=== PATIENT | male | born 1970 | race Caucasian/White ===

== ENCOUNTER 2017-06-23 10:43 | Observation (INO) | payer OTHER ==
[2017-06-23 10:53] VITALS: BP 120/69; PULSE 96; RESP 16; TEMP 98.7; O2SAT 97
--- NOTE | 2017-06-23 11:10 | PD ---
HPI Chief Complaint: Chest Pain Time Seen by Provider: 11:01 Travel History International Travel<30 days: No Contact w/Intl Traveler<30days: No Traveled to known affect area: No History of Present Illness HPI 47-year-old male who presents under police custody for evaluation of chest pain. Symptoms started after being arrested this morning. He describes it as a substernal chest pressure which initially was constant and lasted for several minutes and then resolved prior to this examination. He has never experienced this type of pain before. He denies any nausea, vomiting, diaphoresis, cough, congestion, abdominal pain. He denies any chest wall trauma. He endorses tobacco use as well as cocaine use, most recently used cocaine yesterday. He is not aware of any personal history of diabetes, hypertension, hyperlipidemia, coronary artery disease. He is not aware of any family history of coronary artery disease. He is a poor historian. No other complaints. [facility] Past Medical History Medical History: Denies Significant Hx Social History Alcohol Use: Yes (DAILY) Tobacco Use: Yes (1 PPD) Substance Use: Yes (cocaine) Allergies-Medications (Allergen,Severity, Reaction): Coded Allergies: No Known Allergies (Unverified , 06/23/17) Review of Systems Except as stated in HPI: all other systems reviewed are Neg Physical Exam Narrative GENERAL: Disheveled male in no acute distress resting hospital bed. SKIN: Warm and dry. HEAD: Atraumatic. Normocephalic. EYES: Pupils equal and round. No scleral icterus. No injection or drainage. ENT: No nasal bleeding or discharge. Mucous membranes pink and moist. NECK: Trachea midline. No JVD. CARDIOVASCULAR: Regular rate and rhythm. No murmur appreciated. RESPIRATORY: No accessory muscle use. Clear to auscultation. Breath sounds equal bilaterally. No crackles no wheezing or rhonchi GASTROINTESTINAL: Abdomen soft, non-tender, nondistended. Hepatic and splenic margins not palpable. MUSCULOSKELETAL: No obvious deformities. No edema. NEUROLOGICAL: Awake and alert. No obvious cranial nerve deficits. Motor grossly within normal limits. Normal speech. Data Data Last Documented VS Vital Signs Date Time Temp Pulse Resp B/P (MAP) Pulse Ox O2 Delivery O2 Flow Rate FiO2 06/23/17 11:18 96 Room Air 06/23/17 10:56 66 16 06/23/17 10:53 98.7 120/69 (86) Orders Orders Electrocardiogram (06/23/17 11:07) Basic Metabolic Panel (Bmp) (06/23/17 11:07) Ckmb (Isoenzyme) Profile (06/23/17 11:07) Complete Blood Count With Diff (06/23/17 11:07) Magnesium (Mg) (06/23/17 11:07) Prothrombin Time / Inr (Pt) (06/23/17 11:07) Act Partial Throm Time (Ptt) (06/23/17 11:07) Troponin I (06/23/17 11:07) Ecg Monitoring (06/23/17 11:07) Bilateral Bp Monitoring (06/23/17 11:07) Iv Access Insert/Monitor (06/23/17 11:07) Oximetry (06/23/17 11:07) Oxygen Administration (06/23/17 11:07) Sodium Chloride 0.9% Flush (Ns Flush) (06/23/17 11:15) Chest, Pa & Lat (06/23/17 11:07) Admit Order (Ed Use Only) (06/23/17 11:59) Labs Laboratory Tests Test 06/23/17 11:11 White Blood Count 8.6 TH/MM3 Red Blood Count 3.78 MIL/MM3 Hemoglobin 11.6 GM/DL Hematocrit 35.2 % Mean Corpuscular Volume 93.2 FL Mean Corpuscular Hemoglobin 30.6 PG Mean Corpuscular Hemoglobin Concent 32.8 % Red Cell Distribution Width 16.3 % Platelet Count 255 TH/MM3 Mean Platelet Volume 8.1 FL Neutrophils (%) (Auto) 70.6 % Lymphocytes (%) (Auto) 18.3 % Monocytes (%) (Auto) 9.0 % Eosinophils (%) (Auto) 1.5 % Basophils (%) (Auto) 0.6 % Neutrophils # (Auto) 6.1 TH/MM3 Lymphocytes # (Auto) 1.6 TH/MM3 Monocytes # (Auto) 0.8 TH/MM3 Eosinophils # (Auto) 0.1 TH/MM3 Basophils # (Auto) 0.1 TH/MM3 CBC Comment DIFF FINAL Differential Comment Prothrombin Time 9.8 SEC Prothromb Time International Ratio 1.0 RATIO Activated Partial Thromboplast Time 28.7 SEC Blood Urea Nitrogen 13 MG/DL Creatinine 1.00 MG/DL Random Glucose 96 MG/DL Calcium Level 8.8 MG/DL Magnesium Level 1.8 MG/DL Sodium Level 136 MEQ/L Potassium Level 3.8 MEQ/L Chloride Level 102 MEQ/L Carbon Dioxide Level 27.5 MEQ/L Anion Gap 7 MEQ/L Estimat Glomerular Filtration Rate 80 ML/MIN Total Creatine Kinase 87 U/L Troponin I LESS THAN 0.02 NG/ML MDM Medical Decision Making Medical Screen Exam Complete: Yes Emergency Medical Condition: Yes Medical Record Reviewed: Yes Differential Diagnosis Anxiety, spontaneous pneumothorax, pleurisy, pericarditis, myocarditis, angina, acute coronary syndrome, pulmonary embolism, aortic dissection Narrative Course The patient was placed on the seizure monitor and pulse oximetry. Twelve-lead EKG was obtained revealing Q waves in precordial leads with no acute ischemic changes. The patient received supplemental nitroglycerin and aspirin on route and he is currently chest pain-free. Lab work, chest x-ray is been ordered. Initial lab work is reassuring. This one time, given his age, history of cocaine abuse and tobacco abuse, the plan is to admit him in the chest pain center for serial cardiac enzymes and rule out purposes. He is agreeable. He remains chest pain-free during his examination in the ED. Diagnosis Primary Impression: Chest pain Additional Impressions: Cocaine abuse Tobacco abuse Admitting Information Admitting Physician Requests: Yunior Mayers Jun 23, 2017 11:10
[2017-06-23] MEDS ORDERED: SODIUM CHLORIDE 0.9% FLUSH 10 ML FLUSH IVF PRN (11:15)
[2017-06-23 11:18] VITALS: O2SAT 96
[2017-06-23 11:25] LABS: AUTOMATED NEUTROPHIL # 6.1 TH/MM3 (1.8-7.7); BASOPHIL # 0.1 TH/MM3 (0-0.2); BASOPHIL % 0.6 % (0.0-2.0); EOSINOPHIL # 0.1 TH/MM3 (0-0.4); EOSINOPHIL % 1.5 % (0.0-4.0); HEMATOCRIT 35.2 % (39.0-51.0); HEMOGLOBIN 11.6 GM/DL (13.0-17.0); LYMPH % 18.3 % (9.0-44.0); LYMPHOCYTE # 1.6 TH/MM3 (1.0-4.8); MEAN CELL VOLUME 93.2 FL (80.0-100.0); MEAN CORPUSCULAR HEMOGLOBIN 30.6 PG (27.0-34.0); MEAN CORPUSCULAR HGB CONC 32.8 % (32.0-36.0); MEAN PLATELET VOLUME 8.1 FL (7.0-11.0); MONOCYTE # 0.8 TH/MM3 (0-0.9); NEUT % 70.6 % (16.0-70.0); PLATELET COUNT 255 TH/MM3 (150-450); RED BLOOD COUNT 3.78 MIL/MM3 (4.50-5.90); RED CELL DISTRIBUTION WIDTH 16.3 % (11.6-17.2); WHITE BLOOD COUNT 8.6 TH/MM3 (4.0-11.0)
[2017-06-23 11:36] LABS: PROTHROMBIN TIME - PATIENT 9.8 SEC (9.8-11.6)
--- NOTE | 2017-06-23 11:38 | PD ---
Physical Exam Date Seen by Provider: Jun 23, 2017 Time Seen by Provider: 11:25 Narrative I am seeing this patient with Yunior Trejo PA-C. This is a 47-year-old male with no reported past medical history, who presents via EMS in custody after he had an episode of pain. Patient states that the pain has nearly resolved however it was present prior to arrival. He reports as a pressure-like over the sternum. The patient has no previous history of cardiac events but has not seen a physician in the past. The patient does use tobacco products and admits to using cocaine. Data Data Last Documented VS Vital Signs Date Time Temp Pulse Resp B/P (MAP) Pulse Ox O2 Delivery O2 Flow Rate FiO2 06/23/17 11:18 96 Room Air 06/23/17 10:56 66 16 06/23/17 10:53 98.7 120/69 (86) Orders Orders Electrocardiogram (06/23/17 11:07) Basic Metabolic Panel (Bmp) (06/23/17 11:07) Ckmb (Isoenzyme) Profile (06/23/17 11:07) Complete Blood Count With Diff (06/23/17 11:07) Magnesium (Mg) (06/23/17 11:07) Prothrombin Time / Inr (Pt) (06/23/17 11:07) Act Partial Throm Time (Ptt) (06/23/17 11:07) Troponin I (06/23/17 11:07) Ecg Monitoring (06/23/17 11:07) Bilateral Bp Monitoring (06/23/17 11:07) Iv Access Insert/Monitor (06/23/17 11:07) Oximetry (06/23/17 11:07) Oxygen Administration (06/23/17 11:07) Sodium Chloride 0.9% Flush (Ns Flush) (06/23/17 11:15) Chest, Pa & Lat (06/23/17 11:07) Labs Laboratory Tests Test 06/23/17 11:11 White Blood Count 8.6 TH/MM3 Red Blood Count 3.78 MIL/MM3 Hemoglobin 11.6 GM/DL Hematocrit 35.2 % Mean Corpuscular Volume 93.2 FL Mean Corpuscular Hemoglobin 30.6 PG Mean Corpuscular Hemoglobin Concent 32.8 % Red Cell Distribution Width 16.3 % Platelet Count 255 TH/MM3 Mean Platelet Volume 8.1 FL Neutrophils (%) (Auto) 70.6 % Lymphocytes (%) (Auto) 18.3 % Monocytes (%) (Auto) 9.0 % Eosinophils (%) (Auto) 1.5 % Basophils (%) (Auto) 0.6 % Neutrophils # (Auto) 6.1 TH/MM3 Lymphocytes # (Auto) 1.6 TH/MM3 Monocytes # (Auto) 0.8 TH/MM3 Eosinophils # (Auto) 0.1 TH/MM3 Basophils # (Auto) 0.1 TH/MM3 CBC Comment DIFF FINAL Differential Comment Prothrombin Time 9.8 SEC Prothromb Time International Ratio 1.0 RATIO Activated Partial Thromboplast Time 28.7 SEC Blood Urea Nitrogen 13 MG/DL Creatinine 1.00 MG/DL Random Glucose 96 MG/DL Calcium Level 8.8 MG/DL Magnesium Level 1.8 MG/DL Sodium Level 136 MEQ/L Potassium Level 3.8 MEQ/L Chloride Level 102 MEQ/L Carbon Dioxide Level 27.5 MEQ/L Anion Gap 7 MEQ/L Estimat Glomerular Filtration Rate 80 ML/MIN Total Creatine Kinase 87 U/L Troponin I LESS THAN 0.02 NG/ML [facility] Medical Record Reviewed: Yes Supervised Visit with NEIL: Yes Differential Diagnosis ACS versus muscular skeletal pain versus pleurisy v Narrative Course 47-year-old male with history of cocaine and tobacco use, presents here in custody. The patient apparently started expressing chest pain when he was arrested. EKG shows no evidence of acute ST elevation or depression. There is questionable Q waves noted in V1 and V2. Cardiac enzymes are within normal limits. Given the patient's cocaine and tobacco use, recommendation is that he go to the chest pain center for rule out protocol. He is amenable to this plan. Diagnosis Primary Impression: Chest pain Additional Impressions: History of cocaine use History of tobacco use Admitting Information Admitting Physician Requests: Observation Jorge Azevedo MD Jun 23, 2017 11:38
--- NOTE | 2017-06-23 11:48 | RADRPT ---
EXAM DATE/TIME: 06/23/2017 11:33 [facility] COMPARISON: No previous studies available for comparison. INDICATIONS : Chest pain today. MEDICAL HISTORY : None. SURGICAL HISTORY : None. ENCOUNTER: Initial ACUITY: 1 day PAIN SCORE: 6/10 LOCATION: Bilateral chest FINDINGS: PA and lateral views of the chest demonstrate a normal-sized cardiac silhouette. There is no effusion , consolidation, or pneumothorax. The bones and soft tissues demonstrate no acute abnormality. CONCLUSION: No acute cardiopulmonary abnormalities identified. Gio Root MD on June 23, 2017 at 11:44 Board Certified Radiologist. This report was verified electronically.
[2017-06-23 11:51] LABS: BICARBONATE 27.5 MEQ/L (21.0-32.0); BLOOD UREA NITROGEN 13 MG/DL (7-18); CALCIUM 8.8 MG/DL (8.5-10.1); CHLORIDE 102 MEQ/L (98-107); GLOMERULAR FILTRATION RATE 80 ML/MIN (>89); GLUCOSE,RANDOM 96 MG/DL (74-106); MAGNESIUM 1.8 MG/DL (1.5-2.5); SODIUM (NA) 136 MEQ/L (136-145)
[2017-06-23 11:54] LABS: TROPONIN I LESS THAN 0.02 NG/ML (0.02-0.05)
[2017-06-23] MEDS ORDERED: ACETAMINOPHEN 500 MG CPLT PO PRN (12:45)
[2017-06-23] MEDS ORDERED: SODIUM CHLORID 0.9% 500 ML INJ 500 ML IV ONE (12:45)
[2017-06-23] MEDS ORDERED: ACETAMINOPHEN/HYDROcodone 325 MG/7.5 MG TAB PO PRN (12:45)
[2017-06-23] MEDS ORDERED: PANTOPRAZOLE SOD 40 MG DELAYED RELEASE TAB PO SCH (12:45)
[2017-06-23] MEDS ORDERED: ONDANSETRON HCL 4 MG/2 ML VIAL IV PUSH PRN (12:45)
[2017-06-23] MEDS ORDERED: METH40TA PO (13:08)
[2017-06-23 13:11] VITALS: BP 139/82; PULSE 67; RESP 18; O2SAT 98
--- NOTE | 2017-06-23 13:45 | HHI.HP ---
HPI Primary Care Physician No Primary Care Physician Chief Complaint Chest pain History of Present Illness This is a 47-year-old male that presents to ED via [facility] in police custody with complaint of chest discomfort. He states that he developed the chest discomfort while sitting in the back of the police car. Describes it as an elephant sitting on his chest. Had some shortness of breath. Denies diaphoresis or nausea. States he was given sublingual nitroglycerin in the ambulance but it really did not make a difference. He states eventually resolved within about an hour. Worse level is a 10 out of 10. Cannot recall prior cardiac workup. Denies hypertension, hyperlipidemia, diabetes, and known CAD. States he goes to methadone clinic for daily methadone. Admits to using cocaine daily for the past 2 months. States he will smoke crack cocaine 6-7 times a day. Denies recent illness. Denies fevers or chills. Admits to being under a lot of stress. States he is in the process of buying a condo. Review of Systems General: Patient denies fevers, chills, and recent travel HEENT: Patient denies headache, sore throat, difficulty swallowing. Cardiovascular: Has the chest discomfort as mentioned above. Denies sensation of heart beating rapidly or irregularly. No syncope. Denies diaphoresis. Respiratory: He was short of breath. Denies inspirational chest discomfort. Denies coughing wheezing or hemoptysis. GI: Patient denies nausea, vomiting, diarrhea, abdominal pain, bloody stools. Musculoskeletal: Patient denies joint pain or edema. Denies calf pain or edema. Neurovascular: Patient denies numbness, tingling, weakness in extremities. Denies headache. Endocrine: Denies polyuria and polydipsia. Hematologic: Denies easy bruising. Skin: Denies rash or itching. States he has scabs on his arms from picking at the skin. States he does this as a nervous habit. Has not noticed any drainage or redness. Past Family Social History Allergies: Coded Allergies: No Known Allergies (Unverified , 06/23/17) Past Medical History Cocaine abuse. Tobacco abuse. Chronic pain. Denies hypertension, hyperlipidemia, diabetes, and CAD. Past Surgical History Noncontributory. Reported Medications Reported Meds & Active Scripts Active Reported Methadone (Methadone HCl) 40 Mg Tab 120 Mg PO DAILY Active Ordered Medications Current Medications Medications (Trade) Dose Ordered Sig/Matthew Route Start Time Stop Time Status Last Admin (NS Flush) 2 ml UNSCH PRN IVF 06/23/17 11:15 (Tylenol) 500 mg Q4H PRN PO 06/23/17 12:45 (Parnell 7.5-325 Mg) 1 tab Q4H PRN PO 06/23/17 12:45 (Zofran Inj) 4 mg Q6H PRN IV PUSH 06/23/17 12:45 (Protonix) 40 mg DAILY PO 06/23/17 12:45 06/23/17 13:12 (Aspirin) 325 mg DAILY PO 06/24/17 09:00 Family History States his mother at age 55 old myocardial infarction. Social History Months. Prior to that he states he was sober for a couple years. Has on average a couple beers per day. Physical Exam Vital Signs Vital Signs Date Time Temp Pulse Resp B/P (MAP) Pulse Ox O2 Delivery O2 Flow Rate FiO2 06/23/17 13:11 67 18 139/82 (101) 98 Room Air 06/23/17 11:18 96 Room Air 06/23/17 11:18 96 Room Air 06/23/17 10:56 66 16 92 Room Air 06/23/17 10:53 98.7 96 16 120/69 (86) 97 Physical Exam GENERAL: This is a well-nourished, well-developed patient, in no apparent distress. Patient speaks in clear complete sentences. Patient is pleasant. HEENT: Head is atraumatic and normocephalic. Neck is supple without lymphadenopathy and trachea is midline. No JVD or carotid bruits. CARDIOVASCULAR: Regular rate and rhythm without murmurs, gallops, or rubs. RESPIRATORY: Clear to auscultation. Breath sounds equal bilaterally. No wheezes , rales, or rhonchi. Chest wall is nontender. No use of accessory muscles. GASTROINTESTINAL: Abdomen is nontender, nondistended. Abdomen soft. No obvious pulsatile mass or bruit. No CVA tenderness. Strong femoral pulses bilaterally. Normal bowel sounds in all quadrants. MUSCULOSKELETAL: Patient is moving upper and lower extremities freely. No calf tenderness or edema, no Homans sign. Strong pulses in upper and lower extremities. NEUROLOGICAL: Patient is alert and oriented. Cranial nerves 2-12 are grossly intact. No focal deficits and speech is clear. SKIN: There are several scabbed lesions on his forearms without erythema or drainage. No rash and turgor is normal. Laboratory Laboratory Tests Test 06/23/17 11:11 White Blood Count 8.6 Red Blood Count 3.78 Hemoglobin 11.6 Hematocrit 35.2 Mean Corpuscular Volume 93.2 Mean Corpuscular Hemoglobin 30.6 Mean Corpuscular Hemoglobin Concent 32.8 Red Cell Distribution Width 16.3 Platelet Count 255 Mean Platelet Volume 8.1 Neutrophils (%) (Auto) 70.6 Lymphocytes (%) (Auto) 18.3 Monocytes (%) (Auto) 9.0 Eosinophils (%) (Auto) 1.5 Basophils (%) (Auto) 0.6 Neutrophils # (Auto) 6.1 Lymphocytes # (Auto) 1.6 Monocytes # (Auto) 0.8 Eosinophils # (Auto) 0.1 Basophils # (Auto) 0.1 CBC Comment DIFF FINAL Differential Comment Prothrombin Time 9.8 Prothromb Time International Ratio 1.0 Activated Partial Thromboplast Time 28.7 Blood Urea Nitrogen 13 Creatinine 1.00 Random Glucose 96 Calcium Level 8.8 Magnesium Level 1.8 Sodium Level 136 Potassium Level 3.8 Chloride Level 102 Carbon Dioxide Level 27.5 Anion Gap 7 Estimat Glomerular Filtration Rate 80 Total Creatine Kinase 87 Troponin I LESS THAN 0.02 Result Diagram: 06/23/17 1111 06/23/17 1111 Imaging Last 48 hours Impressions Chest X-Ray 06/23/17 1107 Signed Impressions: Service Date/Time: Friday, June 23, 2017 11:33 - CONCLUSION: No acute cardiopulmonary abnormalities identified. Gio Root MD Course Initial EKG is sinus rhythm rate of [address] segment depressions or elevations. Caprini VTE Risk Assessment Caprini VTE Risk Assessment: No/Low Risk (score <= 1) Caprini Risk Assessment Model Point Value = 1 Point Value = 2 Point Value = 3 Point Value = 5 Age 41-60 Minor surgery BMI > 25 kg/m2 Swollen legs Varicose veins or History of unexplained or recurrent spontaneous Oral contraceptives or hormone replacement Sepsis (< 1 month) Serious lung disease, including pneumonia (< 1 month) Abnormal pulmonary function Acute myocardial infarction Congestive heart failure (< 1 month) History of inflammatory bowel disease Medical patient at bed rest Age 61-74 Arthroscopic surgery Major open surgery (> 45 min) Laparoscopic surgery (> 45 min) Malignancy Confined to bed (> 72 hours) Immobilizing plaster cast Central venous access Age >= 75 History of VTE Family history of VTE Factor V Leiden Prothrombin [id number] Lupus anticoagulant Anticardiolipin antibodies Elevated serum homocysteine Heparin-induced thrombocytopenia Other congenital or acquired thrombophilia Stroke (< 1 month) Elective arthroplasty Hip, pelvis, or leg fracture Acute spinal cord injury (< 1 month) Prophylaxis Regimen Total Risk Factor Score Risk Level Prophylaxis Regimen 0-1 Low Early ambulation 2 Moderate Order ONE of the following: *Sequential Compression Device (SCD) *Heparin 5000 units SQ BID 3-4 Higher Order ONE of the following medications: *Heparin 5000 units SQ TID *Enoxaparin/Lovenox 40 mg SQ daily (WT < 150 kg, CrCl > 30 mL/min) *Enoxaparin/Lovenox 30 mg SQ daily (WT < 150 kg, CrCl > 10-29 mL/min) *Enoxaparin/Lovenox 30 mg SQ BID (WT < 150 kg, CrCl > 30 mL/min) AND/OR *Sequential Compression Device (SCD) 5 or more Highest Order ONE of the following medications: *Heparin 5000 units SQ TID (Preferred with Epidurals) *Enoxaparin/Lovenox 40 mg SQ daily (WT < 150 kg, CrCl > 30 mL/min) *Enoxaparin/Lovenox 30 mg SQ daily (WT < 150 kg, CrCl > 10-29 mL/min) *Enoxaparin/Lovenox 30 mg SQ BID (WT < 150 kg, CrCl > 30 mL/min) AND *Sequential Compression Device (SCD) Assessment and Plan Assessment and Plan * Chest pain: Patient's first troponin was normal. I have discussed the patient with Dr. Al, she will be evaluating the patient here shortly. At this time we have ordered a CT coronary angiogram and further disposition is pending results of the study. Patient will be discharged while still in custody of the police. He will be advised to follow-up with PCP. Return to ED for interval issues. * Cocaine abuse: Patient has been counseled importance of no longer using cocaine. * Tobacco abuse: Patient has been counseled importance of smoking cessation. Patient is stable at this time. He is agreeable to this plan. Shahram Medrano Jun 23, 2017 13:45
[2017-06-23] MEDS ORDERED: NITROGLYCERIN 0.4 MG SL 25 TABS/BTL SL ONE (13:47)
[2017-06-23 14:10] VITALS: BP 119/74; PULSE 64; RESP 18
[2017-06-23] MEDS ORDERED: IOHEXOL 350 MG/ML 10 ML VIAL (for RAD DIAG) IVCONTRAST ONE (14:12)
[2017-06-23 15:19] VITALS: BP 158/83; PULSE 65; RESP 18; O2SAT 98
[2017-06-23 15:22] LABS: TROPONIN I LESS THAN 0.02 NG/ML (0.02-0.05)
--- NOTE | 2017-06-23 16:17 | RADRPT ---
EXAM DATE/TIME: 06/23/2017 13:58 [facility] COMPARISON: No previous studies available for comparison. INDICATIONS : Chest pain IV CONTRAST: 92 cc Omnipaque 350 (iohexol) IV RADIATION DOSE: 10.35 CTDIvol (mGy) MEDICAL HISTORY : None SURGICAL HISTORY : None. ENCOUNTER: Initial ACUITY: 1 day PAIN SCALE: 10/10 LOCATION: chest TECHNIQUE: Volumetric scanning was obtained through the heart. Images were acquired on a multislice multiple ro w detector helical scanner timed for acquisition during peak arterial contrast. Images were reconstr ucted using a retrospective gating algorithm including single sector and multi-sector algorithms at m ultiple phases of the cardiac cycle. Images were interpreted using a combination of 2D and 3D visual ization modes including curved planar reformation, thin slab maximum intensity projection and volume rendering. Using automated exposure control and adjustment of the mA and/or kV according to patient size, radiation dose was kept as low as reasonably achievable to obtain optimal diagnostic quality im ages. DICOM format image data is available electronically for review and comparison. FINDINGS: VESSEL ANALYSIS: DOMINANCE: The coronary system is right dominant. LEFT MAIN: Normal vessel without calcification or stenosis. LAD: There is minimal calcification involving the proximal left anterior descending artery with stenosis l ess than 30%. More distally the vessel is intact. CIRCUMFLEX: There's a small focus of plaque involving the proximal circumflex vessel. RCA: Normal vessel without calcification or stenosis. OTHER: Calcium score is 29. CONCLUSION: Minimal nonstenotic plaque involving the proximal left anterior descending artery otherwise unremarka ble Tucker Morley MD on June 23, 2017 at 16:06 Board Certified Radiologist. This report was verified electronically.
[2017-06-23] MEDS ORDERED: ASPI-183 PO (17:10)
--- NOTE | 2017-06-23 17:11 | HHI.DCPOC ---
Discharge Care Plan Diagnosis: (1) Chest pain (2) Tobacco abuse (3) Cocaine abuse (4) Mild CAD Goals to Promote Your Health *Need to discuss medical management with your physician. Lifestyle modification. To prevent worsening of your condition and complications * To maintain your health at the optimal level Directions to Meet Your Goals Take your medications as prescribed Follow your dietary instruction Follow activity as directed Keep your appointments as scheduled Take your immunizations and boosters as scheduled If your symptoms worsen call your PCP, if no PCP go to Urgent Care Center or Emergency Room Smoking is Dangerous to Your Health. Avoid second hand smoke Call the 24-hour hour crisis hotline for domestic abuse at Shahram Medrano Jun 23, 2017 17:11
[2017-06-24] MEDS ORDERED: ASPIRIN 325 MG TAB PO SCH (09:00)
--- NOTE | 2017-06-24 11:35 | EKG ---
Date Performed: 06/23/2017 Time Performed: 10:58:25 PTAGE: 47 years EKG: Sinus rhythm ABNORMAL ECG NO PREVIOUS TRACING DOCTOR: Tucker Washington Interpretating Date/Time 06/24/2017 12:04:57
--- NOTE | 2017-06-24 16:05 | EKG ---
Date Performed: 06/23/2017 Time Performed: 14:30:13 PTAGE: 47 years EKG: Sinus rhythm NORMAL ECG PREVIOUS TRACING : 06/23/2017 10.58 Since previous tracing, no significant change noted DOCTOR: Tucker Washington Interpretating Date/Time 06/24/2017 16:04:27
== END 2017-06-23 17:24 | disposition home or self-care (01) ==
LOC: NEPE 10:43 → NEDA 12:00 → NEPGCP 14:46
PROVIDERS: ADMIT Internal Medicine Interventional Cardiology; ATTEND Internal Medicine Interventional Cardiology
DX: R07.89 Other chest pain (principal); F14.10 Cocaine abuse, uncomplicated; I25.10 Atherosclerotic heart disease of native coronary artery without angina pectoris; R06.02 Shortness of breath; R94.31 Abnormal electrocardiogram [ECG] [EKG]; F17.200 Nicotine dependence, unspecified, uncomplicated
CPT/HCPCS: 71046; 75574; 80048; 82550; 83735; 84484; 85025; 85610; 85730; 93005; 99285; G0378; Q9967